=== PATIENT | female | born 1975 | race Two or more races ===

== ENCOUNTER 2020-11-15 19:19 | Emergency (ER) | payer MEDICAID, OTHER ==
[~2020-11-15] VITALS: Ht 152.4 cm; Wt 72.6 kg
[2020-11-15 21:35] LABS: Hematocrit 36.2 % (36.0-46.0); Hemoglobin 10.8 g/dL (12.2-16.2); Mean Corpuscular Volume 66.7 fL (80.0-100.0); Platelet Count (auto) 298 10^3/uL (140-450); Red Blood Cells 5.42 10^6/uL (4.0-5.20); White Blood Cell 12.2 10^3/uL (4.4-10.8)
[2020-11-15 21:40] LABS: Red Cell Distribution Width 24.4 % (11.8-14.3)
[2020-11-15 21:42] LABS: Basophils % (manual) 0 (0.0-2.0); Blast Cells 0; Eosinophils % (manual) 0 (0-7); Promyelocytes % 0; Reactive Lymphocytes 0
[2020-11-15 21:52] LABS: Albumin 3.1 g/dL (3.4-5.0); BUN/Creatinine Ratio 75.9; Calcium 8.7 mg/dL (8.5-10.1); Potassium 4.3 mmol/L (3.5-5.1)
[2020-11-15 22:03] LABS: Bilirubin, Total 0.3 mg/dL (0.2-1.0); Total Protein 6.9 g/dL (6.4-8.2)
[2020-11-15 22:23] LABS: Band Neutrophils % (manual) 13; Lymphocytes % (manual) 3 (10.0-50.0); Metamyelocytes % 1; Monocytes % (manual) 3 (0-12); Myelocytes % 1
[2020-11-15 23:54] VITALS: BP 181/91
[2020-11-16] MEDS ORDERED: ONDANSETRON HCL 4 MG/2 ML VIAL IV ONE
[2020-11-16] MEDS ORDERED: MORPHINE SULFATE 4 MG/ML SYR/VIAL IV ONE
== END 2020-11-16 00:55 | disposition home or self-care (01) ==
LOC: ER 19:19
DX: M48.56XA Collapsed vertebra, not elsewhere classified, lumbar region, initial encounter for fracture (principal); Z76.0 Encounter for issue of repeat prescription
CPT/HCPCS: 36415; 72131; 72192; 80053; 83605; 85007; 85027; 87040; 96374; 96375; 99285; J2270; J2405